=== PATIENT | male | born 1960 | race Caucasian/White ===

== ENCOUNTER 2018-05-29 12:42 | Emergency (ER) | payer OTHER ==
[2018-05-29 12:51] VITALS: BP 103/76; PULSE 54; TEMP 98.3; BMI 26.4
[2018-05-29] MEDS ORDERED: KETOROLAC TROMETHAMINE 30 MG/1 ML VIAL IM ONE (13:26)
[2018-05-29] MEDS ORDERED: KETOROLAC TROMETHAMINE 30 MG/1 ML VIAL ONE (13:33)
--- NOTE | 2018-05-29 13:39 | PDOC ---
History of Present Illness - General Chief Complaint: Pain Stated Complaint: PAIN, ACUTE History Source: Patient Exam Limitations: No Limitations - History of Present Illness Initial Comments: 05/29/18 13:27 Patient is a 58 year old male with h/o hernia c/o left flank pain. was driving back from the grocery when he has sudden onset of left flank pain, no radiation to the front, which was sharp 7/10, assoc/w sweating due to the pain. last night has slight pain in the same spot but quickly resolved with with Advil. This morning the pain returned and again took Advil with relief. He was about his activities when the pain started so came to the ED for eval. No h/o kidney stone, no injury. States thought could have stained himself when he carried a back pack but states was light. Denies fever, chills, nausea , vomiting, dysuria. PMHX: as above PSOCHX: neg cig, drug, cig ALL: NKDA GENERAL/CONSTITUTIONAL: [No fever or chills. No weakness. No weight change.] HEAD, EYES, EARS, NOSE AND THROAT: [No change in vision. No ear pain or discharge. No sore throat.] CARDIOVASCULAR: [No chest pain or shortness of breath.] RESPIRATORY: [No cough, wheezing, or hemoptysis.] GASTROINTESTINAL: [No nausea, vomiting, diarrhea or constipation. No rectal bleeding.] GENITOURINARY: [No dysuria, frequency, or change in urination.] MUSCULOSKELETAL: [No joint or muscle swelling or pain. No neck (+) back pain.] SKIN AND BREASTS: [No rash or easy bruising.] NEUROLOGIC: [No headache, vertigo, loss of consciousness, or loss of sensation.] PSYCHIATRIC: [No depression or anxiety.] ENDOCRINE: [No increased thirst. No abnormal weight change.] HEMATOLOGIC/LYMPHATIC: [No anemia, easy bleeding, or history of blood clots.] ALLERGIC/IMMUNOLOGIC: [No hives or skin allergy. No latex allergy.] GENERAL: [The patient is awake, alert, and fully oriented, in no acute distress. ] HEAD: [Normal with no signs of trauma.] EYES: [Pupils equal, round and reactive to light, extraocular movements intact, sclera anicteric, conjunctiva clear.] ENT: [Ears normal, nares patent, oropharynx clear without exudates. Moist mucous membranes.] NECK: [Normal range of motion, supple without lymphadenopathy, JVD, or masses.] LUNGS: [Breath sounds equal, clear to auscultation bilaterally. No wheezes, and no crackles.] HEART: [Regular rate and rhythm, normal S1 and S2 without murmur, rub.] ABDOMEN: [Soft, nontender, normoactive bowel sounds, No guarding, no rebound. No masses, (+) LCVAT.] EXTREMITIES: [Normal range of motion, no edema. No clubbing or cyanosis. No cords, erythema, or tenderness.] NEUROLOGICAL: [Cranial nerves II through XII grossly intact. 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) COPD: No Other medical history: h/o abdominal hernia - Immunization History Immunization Up to Date: Yes - Suicide/Smoking/Psychosocial Hx Smoking Status: No Smoking History: Never smoked Have you smoked in the past 12 months: No Number of Cigarettes Smoked Daily: 0 Information on smoking cessation initiated: No Hx Alcohol Use: No Drug/Substance Use Hx: No *Physical Exam - Vital Signs Last Vital Signs Temp Pulse Resp BP Pulse Ox 98.3 F 54 L 18 103/76 100 05/29/18 12:47 05/29/18 12:47 05/29/18 12:47 05/29/18 12:47 05/29/18 12:47 Moderate Sedation - Procedure Monitoring Vital Signs: Procedure Monitoring Vital Signs Temperature 98.3 F 05/29/18 12:47 Pulse Rate 54 L 05/29/18 12:47 Respiratory Rate 18 05/29/18 12:47 Blood Pressure 103/76 05/29/18 12:47 O2 Sat by Pulse Oximetry (%) 100 05/29/18 12:47 ED Treatment Course - LABORATORY CBC & Chemistry Diagram: 05/29/18 13:15 05/29/18 13:30 - RADIOLOGY Radiology Studies Ordered: Category Date Time Status ABDOMEN & PELVIS CT W/O CONTR [CT] Stat CT Scan 05/29/18 13:24 Ordered Medical Decision Making - Medical Decision Making 05/29/18 13:27 Patient is a 58 year old male with h/o hernia c/o left flank pain. DDX: Back strain, kidney stone cbc, bmp, UA, CTAP noncon, Toradol 30mg IM 05/29/18 15:26 Lab review will no acute finding except blood in the urine. ct scan reviewed not to have a 4x 3mm stone UPJ left with hydronephrosis. Will give flomax Will d/c urology I discussed the physical exam findings, ancillary test results and final diagnoses with the patient. I answered all of the patient's questions. The patient was satisfied with the care received and felt comfortable with the discharge plan and treatment plan. The Patient agrees to follow up with the primary care physician within 24-72 hours. *DC/Admit/Observation/Transfer Diagnosis at time of Disposition: Renal colic on left side - Discharge Dispostion Disposition: HOME Condition at time of disposition: Stable - Referrals Referrals: Michael Darby MD [Staff Physician] - - Patient Instructions Printed Discharge Instructions: DI for Kidney Stones Additional Instructions: Your Discharge Instructions: You must call primary care physician within 24 hours to arrange follow-up. Return to the Emergency Department with any new, persistent or worsening symptoms, for fever, chills, SOB, dizziness or any other concerning changes that may occur. - Post Discharge Activity
[2018-05-29 13:43] LABS: BASO % 2.2 % (0-2.0); EOS % 1.8 % (0-4.5); HEMATOCRIT 42.1 % (35.4-49); HEMOGLOBIN 14.8 GM/dL (11.7-16.9); LYMPH % 15.3 % (8-40); MCH 32.8 pg (25.7-33.7); MCHC 35.2 g/dl (32.0-35.9); MEAN PLT VOLUME 6.7 fl (7.5-11.1); MONO % 4.9 % (3.8-10.2); NEUT % 75.8 % (42.8-82.8); PLATELET COUNT 251 K/MM3 (134-434); RBC 4.53 M/mm3 (4.00-5.60); RDW 12.5 % (11.9-15.9); URINE APPEARANCE SLCLOUDY; URINE BILIRUBIN NEGATIVE (<2.0 mg/dL); URINE COLOR YELLOW; URINE GLUCOSE (UA) NEGATIVE (NEGATIVE); URINE KETONE NEGATIVE (NEGATIVE); URINE LEUK ESTERASE NEGATIVE (NEGATIVE); URINE NITRITE NEGATIVE (NEGATIVE); URINE PROTEIN 2+ (NEGATIVE); WHITE BLOOD COUNT 5.4 K/mm3 (4.0-10.0)
[2018-05-29 13:50] LABS: URINE MUCUS RARE
[2018-05-29 14:01] LABS: ANION GAP 4 MMOL/L (8-16); BLOOD UREA NITROGEN 28 mg/dL (7-18); CALCIUM 8.8 mg/dL (8.5-10.1); CHLORIDE 108 mmol/L (98-107); CO2 30 mmol/L (21-32); CREATININE 1.1 mg/dL (0.55-1.3); GLUCOSE,RANDOM 101 mg/dL (74-106); POTASSIUM 4.7 mmol/L (3.5-5.1); SODIUM 141 mmol/L (136-145)
[2018-05-29] MEDS ORDERED: TAMSULOSIN HCL 0.4 MG CAP PO ONE (15:30)
[2018-05-29] MEDS ORDERED: TAMSULOSIN HCL 0.4 MG CAP ONE (15:34)
== END 2018-05-29 15:35 | disposition home or self-care (01) ==
LOC: JERFT 12:42
PROC: 3E0233Z Introduction of Anti-inflammatory into Muscle, Percutaneous Approach (ICD-10-PCS; principal; 2018-05-29)
DX: N13.2 Hydronephrosis with renal and ureteral calculous obstruction (principal)
CPT/HCPCS: 36415; 74176-TC; 80048; 81003; 81015; 85025; 87086; 99281-25

== ENCOUNTER 2019-02-10 09:12 | Emergency (ER) | payer OTHER | END 2019-02-10 14:17 | disposition home or self-care (01) | LOC: JER 09:12 ==

== ENCOUNTER 2021-11-05 17:17 | Inpatient (IN) | payer OTHER ==
[2021-11-05] MEDS ORDERED: ACETAMINOPHEN 1000 MG/100 ML BAG IVPB ONE (19:06)
[2021-11-05] MEDS ORDERED: ACETAMINOPHEN INJECTION 100 ML IVPB ONE (19:11)
[2021-11-05] MEDS ORDERED: ONDANSETRON 4 MG/2 ML VIAL IVPUSH ONE (20:01)
[2021-11-05 20:04] LABS: BASO % 0.5 % (0-2.0); EOS % 0.7 % (0-4.5); HEMATOCRIT 42.9 % (35.4-49); HEMOGLOBIN 14.5 GM/dL (11.7-16.9); LYMPH % 6.1 % (8-40); MCH 31.4 pg (25.7-33.7); MCHC 33.9 g/dl (32.0-35.9); MEAN CELL VOLUME 92.5 fl (80-96); MEAN PLT VOLUME 6.9 fl (7.5-11.1); MONO % 8.8 % (3.8-10.2); NEUT % 83.9 % (42.8-82.8); PLATELET COUNT 248 10^3/uL (134-434); RBC 4.64 M/mm3 (4.00-5.60); RDW 12.4 % (11.9-15.9); WHITE BLOOD COUNT 9.9 K/mm3 (4.0-10.0)
[2021-11-05 20:17] LABS: EPI CELLS 4 /uL (0-25.1); HYALINE CASTS 1 /uL (0-3.1); URINE APPEARANCE CLEAR; URINE BACTERIA 7 /uL (0-1359); URINE BILIRUBIN NEGATIVE (NEGATIVE); URINE COLOR YELLOW; URINE GLUCOSE (UA) NEGATIVE (NEGATIVE); URINE KETONE NEGATIVE (NEGATIVE); URINE LEUK ESTERASE NEGATIVE (NEGATIVE); URINE NITRITE NEGATIVE (NEGATIVE); URINE PROTEIN NEGATIVE (NEGATIVE); URINE RBC 680 /uL (0-23.9); URINE UROBILINOGEN 0.2 mg/dL (0.2-1.0); URINE WBC 4 /uL (0-25.8)
[2021-11-05] MEDS ORDERED: ONDANSETRON 4 MG/2 ML VIAL ONE (20:20)
[2021-11-05 20:31] LABS: CALCIUM 9.1 mg/dL (8.5-10.1)
[2021-11-05 20:32] LABS: ALBUMIN 3.7 g/dl (3.4-5.0); BLOOD UREA NITROGEN 16.9 mg/dL (7-18)
[2021-11-05 20:35] LABS: CREATININE 1.2 mg/dL (0.55-1.3)
[2021-11-05 20:37] LABS: BILIRUBIN,TOTAL 2.2 mg/dL (0.2-1); TOT PROT 6.8 g/dl (6.4-8.2)
[2021-11-05] MEDS ORDERED: KETOROLAC TROMETHAMINE 15 MG/ML VIAL IVPUSH ONE (20:42)
[2021-11-05] MEDS ORDERED: KETOROLAC TROMETHAMINE 15 MG/ML VIAL ONE (20:47)
[2021-11-05] MEDS ORDERED: ACETAMINOPHEN 1000 MG/100 ML BAG IVPB PRN (23:35)
[2021-11-05] MEDS ORDERED: SODIUM CHLORIDE 1,000 ML IV SCH (23:45)
[2021-11-06] MEDS ORDERED: TAMSULOSIN HCL 0.4 MG CAP ONE (00:15)
[2021-11-06] MEDS: SODIUM CHLORIDE 1,000 ML IV SCH ×2 (00:21→12:27)
[2021-11-06] MEDS: TAMSULOSIN HCL 0.4 MG CAP PO SCH ×2 (00:21→09:10)
[2021-11-06 02:22] VITALS: BMI 26.9
[2021-11-06 07:37] LABS: BASO % 0.8 % (0-2.0); EOS % 0.9 % (0-4.5); HEMATOCRIT 40.3 % (35.4-49); INR 1.1 (0.83-1.09); LYMPH % 9.6 % (8-40); MCHC 34.6 g/dl (32.0-35.9); MEAN CELL VOLUME 92.4 fl (80-96); MEAN PLT VOLUME 6.7 fl (7.5-11.1); MONO % 10.1 % (3.8-10.2); NEUT % 78.6 % (42.8-82.8); PLATELET COUNT 232 10^3/uL (134-434); PROTHROMBIN TIME (PATIENT) 12.7 SEC (9.7-13.0); RBC 4.36 M/mm3 (4.00-5.60); RDW 12.4 % (11.9-15.9); WHITE BLOOD COUNT 6.7 K/mm3 (4.0-10.0)
[2021-11-06 07:40] LABS: ACTIVATED PTT 38.4 SECONDS (25.2-36.5)
[2021-11-06 08:05] LABS: CALCIUM 8.7 mg/dL (8.5-10.1)
[2021-11-06 08:06] LABS: ALBUMIN 3.2 g/dl (3.4-5.0); BLOOD UREA NITROGEN 16.5 mg/dL (7-18); MAGNESIUM 2.5 mg/dL (1.8-2.4)
[2021-11-06 08:09] LABS: CREATININE 1.6 mg/dL (0.55-1.3)
[2021-11-06 08:11] LABS: BILIRUBIN,TOTAL 2.6 mg/dL (0.2-1); TOT PROT 5.9 g/dl (6.4-8.2)
[2021-11-06] MEDS: amLODIPine BESYLATE 5 MG TABLET (FP) PO SCH (09:11)
[2021-11-06] MEDS ORDERED: ONDANSETRON 4 MG/2 ML VIAL IVPUSH PRN (14:53)
[2021-11-06] MEDS ORDERED: PROMETHAZINE HCL 25 MG/1 ML VIAL IVPUSH PRN (14:53)
[2021-11-06] MEDS ORDERED: LIDOCAINE HCL/PF 2% SDV 5ML VIAL ONE (16:02)
[2021-11-06] MEDS ORDERED: MIDAZOLAM HCL 2 MG/2 ML SINGLE DOSE VIAL ONE (16:03)
[2021-11-06] MEDS ORDERED: PROPOFOL 20 ML ONE (16:03)
[2021-11-06] MEDS ORDERED: DEXAMETHASONE SOD PHOSPHATE 4 MG/1 ML VIAL ONE (16:29)
[2021-11-06] MEDS ORDERED: KETOROLAC TROMETHAMINE 30 MG/1 ML VIAL ONE (16:29)
[2021-11-06] MEDS ORDERED: GENTAMICIN SO4 80 MG/2 ML VIAL ONE (16:30)
[2021-11-06] MEDS ORDERED: GENTAMICIN 80MG PREMIX BAG IVPB ONE (16:31)
[2021-11-06] MEDS ORDERED: CLINDAMYCIN PHOSPHATE 600 MG/4 ML VIAL ONE (16:31)
[2021-11-06] MEDS: LACTATED RINGERS SOLUTION 1,000 ML IV SCH (19:31)
[2021-11-06] MEDS ORDERED: LISINOPRIL 10 MG TABLET PO SCH (22:00)
[2021-11-07] MEDS: SODIUM CHLORIDE 1,000 ML IV SCH (05:45)
[2021-11-07 07:24] LABS: HEMATOCRIT 40.9 % (35.4-49); HEMOGLOBIN 14.3 GM/dL (11.7-16.9); MCH 32.4 pg (25.7-33.7); MCHC 34.9 g/dl (32.0-35.9); MEAN PLT VOLUME 6.5 fl (7.5-11.1); PLATELET COUNT 222 10^3/uL (134-434); RDW 12.5 % (11.9-15.9); WHITE BLOOD COUNT 8.2 K/mm3 (4.0-10.0)
[2021-11-07 07:43] LABS: CALCIUM 8.9 mg/dL (8.5-10.1)
[2021-11-07 07:44] LABS: ALBUMIN 3.3 g/dl (3.4-5.0); BLOOD UREA NITROGEN 19.7 mg/dL (7-18); MAGNESIUM 2.3 mg/dL (1.8-2.4)
[2021-11-07 07:47] LABS: PHOSPHOROUS 2.4 mg/dL (2.5-4.9)
[2021-11-07 07:48] LABS: CREATININE 1.2 mg/dL (0.55-1.3)
[2021-11-07 07:49] LABS: BILIRUBIN,TOTAL 2.7 mg/dL (0.2-1); TOT PROT 6.4 g/dl (6.4-8.2)
[2021-11-07 08:44] LABS: ANISOCYTOSIS 1+; MACROCYTOSIS 0
[2021-11-07] MEDS ORDERED: NAPH,MB-DB/K PH,MBDB POWDER PACKET PO ONE (09:00)
[2021-11-07] MEDS: TAMSULOSIN HCL 0.4 MG CAP PO SCH (09:59)
[2021-11-07] MEDS: amLODIPine BESYLATE 5 MG TABLET (FP) PO SCH (09:59)
[2021-11-07] MEDS: LACTATED RINGERS SOLUTION 1,000 ML IV SCH ×2 (12:58→16:11)
[2021-11-08 08:45] LABS: BASO % 0.7 % (0-2.0); EOS % 1.4 % (0-4.5); HEMATOCRIT 39.2 % (35.4-49); HEMOGLOBIN 13.6 GM/dL (11.7-16.9); LYMPH % 13.4 % (8-40); MCH 32.3 pg (25.7-33.7); MCHC 34.8 g/dl (32.0-35.9); MEAN CELL VOLUME 92.8 fl (80-96); MEAN PLT VOLUME 6.8 fl (7.5-11.1); MONO % 9.9 % (3.8-10.2); NEUT % 74.6 % (42.8-82.8); PLATELET COUNT 226 10^3/uL (134-434); RBC 4.23 M/mm3 (4.00-5.60); RDW 12.8 % (11.9-15.9); WHITE BLOOD COUNT 6.3 K/mm3 (4.0-10.0)
[2021-11-08 09:05] LABS: CALCIUM 9.2 mg/dL (8.5-10.1)
[2021-11-08 09:06] LABS: ALBUMIN 3.2 g/dl (3.4-5.0); BLOOD UREA NITROGEN 12.2 mg/dL (7-18); MAGNESIUM 2.1 mg/dL (1.8-2.4)
[2021-11-08 09:09] LABS: CREATININE 0.9 mg/dL (0.55-1.3); PHOSPHOROUS 2.6 mg/dL (2.5-4.9)
[2021-11-08 09:11] LABS: BILIRUBIN,TOTAL 2.1 mg/dL (0.2-1); TOT PROT 6.2 g/dl (6.4-8.2)
[2021-11-08] MEDS: TAMSULOSIN HCL 0.4 MG CAP PO SCH (09:29)
[2021-11-08] MEDS: amLODIPine BESYLATE 5 MG TABLET (FP) PO SCH (09:29)
[2021-11-08 12:49] VITALS: BP 146/77; PULSE 64; TEMP 97.6
== END 2021-11-08 13:43 | disposition home or self-care (01) | DRG 661 ==
LOC: JER 17:17 → JERBED 20:55 → J7W 11-06 01:48
PROVIDERS: ADMIT Internal Medicine; ATTEND Internal Medicine
PROC: BT1FZZZ Fluoroscopy of Left Kidney, Ureter and Bladder (ICD-10-PCS; 2021-11-06)
PROC: 0T778DZ Dilation of Left Ureter with Intraluminal Device, Via Natural or Artificial Opening Endoscopic (ICD-10-PCS; principal; 2021-11-06 17:00)
DX: N13.2 Hydronephrosis with renal and ureteral calculous obstruction (principal); N17.9 Acute kidney failure, unspecified; I10 Essential (primary) hypertension; R31.9 Hematuria, unspecified
CPT/HCPCS: 36415; 74176-TC; 76000-TC-FY; 80053; 81003; 83735; 84100; 85025; 85610; 85730; 86850; 86900; 86901; 87086; 93005; 93010; 94760; 99285-25; C9803-CS; U0003; U0005

== ENCOUNTER 2021-11-27 04:15 | Day surgery (SDC) | payer OTHER ==
[2021-11-18 10:24] VITALS: BMI 26.4
[2021-11-27] MEDS ORDERED: PROPOFOL 20 ML ONE (16:10)
[2021-11-27] MEDS ORDERED: ePHEDrine SULFATE 50 MG/1 ML AMPULE ONE (16:13)
[2021-11-27] MEDS ORDERED: SUCCINYLCHOLINE CHLORIDE 200 MG/10 ML SYRINGE ONE (16:14)
[2021-11-27] MEDS ORDERED: FENTANYL CITRATE/PF 50 MCG/ML VIAL ONE ×5 (16:16→17:34)
[2021-11-27] MEDS ORDERED: MIDAZOLAM HCL 2 MG/2 ML SINGLE DOSE VIAL ONE (16:16)
[2021-11-27] MEDS ORDERED: ceFAZolin SODIUM 1 GM VIAL IVPB ONE (16:35)
[2021-11-27] MEDS ORDERED: DEXAMETHASONE SOD PHOSPHATE 4 MG/1 ML VIAL ONE (16:47)
[2021-11-27] MEDS ORDERED: KETOROLAC TROMETHAMINE 30 MG/1 ML VIAL ONE (16:47)
[2021-11-27] MEDS ORDERED: LIDOCAINE HCL 2% JELLY 10 ML CARTRIDGE ONE (17:04)
[2021-11-27] MEDS ORDERED: oxyCODONE HCL 5 MG TABLET PO PRN (17:31)
[2021-11-27] MEDS ORDERED: ACETAMINOPHEN 1000 MG/100 ML BAG IVPB ONE (17:31)
[2021-11-27] MEDS ORDERED: ONDANSETRON 4 MG/2 ML VIAL IVPUSH PRN (17:31)
[2021-11-27 19:46] VITALS: BP 128/75; PULSE 63; TEMP 96.9
== END 2021-11-27 19:45 | disposition home or self-care (01) ==
LOC: JASU-SURG 04:15
PROVIDERS: ATTEND Urology
PROC: 0TC78ZZ Extirpation of Matter from Left Ureter, Via Natural or Artificial Opening Endoscopic (ICD-10-PCS; principal; 2021-11-27 15:00)
PROC: 0T778DZ Dilation of Left Ureter with Intraluminal Device, Via Natural or Artificial Opening Endoscopic (ICD-10-PCS; 2021-11-27 15:00)
DX: N20.1 Calculus of ureter (principal)
CPT/HCPCS: 36415; 76000-TC-FY; 82360; 88300-TC; 94760

== ENCOUNTER 2021-11-27 21:54 | Emergency (ER) | payer OTHER ==
[2021-11-27 22:02] VITALS: BP 120/74; PULSE 83; BMI 26.4
[2021-11-27] MEDS ORDERED: LACTATED RINGERS SOLUTION 1000 ML INFUS.BAG IV ONE (23:23)
[2021-11-27] MEDS ORDERED: SODIUM CHLORIDE 0.9% 500 ML INFUS.BAG IV ONE (23:24)
[2021-11-28 00:43] LABS: HEMATOCRIT 41.5 % (35.4-49); HEMOGLOBIN 14.2 GM/dL (11.7-16.9); MCHC 34.1 g/dl (32.0-35.9); MEAN CELL VOLUME 93.6 fl (80-96); MEAN PLT VOLUME 7.3 fl (7.5-11.1); PLATELET COUNT 262 10^3/uL (134-434); RBC 4.43 M/mm3 (4.00-5.60); RDW 12.8 % (11.9-15.9)
[2021-11-28 02:51] LABS: ANISOCYTOSIS 0; MACROCYTOSIS 0; ROULEAU 1+
== END 2021-11-28 02:56 | disposition home or self-care (01) ==
LOC: JER 21:54
DX: R31.0 Gross hematuria (principal)
CPT/HCPCS: 36415; 85025; 99284-25

== ENCOUNTER 2023-02-17 04:24 | Day surgery (SDC) | payer OTHER ==
[2023-02-13 15:03] VITALS: BMI 26.2
[2023-02-17] MEDS ORDERED: MIDAZOLAM HCL 2 MG/2 ML SINGLE DOSE VIAL ONE ×2 (15:02→15:07)
[2023-02-17] MEDS ORDERED: ceFAZolin SODIUM 1 GM VIAL IVPB ONE ×2 (15:07→15:10)
[2023-02-17 15:56] VITALS: PULSE 48; RESP 16; TEMP 97.6
[2023-02-17 16:37] VITALS: BP 102/69
== END 2023-02-17 16:52 | disposition home or self-care (01) ==
LOC: JASU-SURG 04:24
PROVIDERS: ATTEND Urology
PROC: 0TF6XZZ Fragmentation in Right Ureter, External Approach (ICD-10-PCS; principal; 2023-02-17 14:45)
DX: N20.1 Calculus of ureter (principal)